=== PATIENT | female | born 1990 | race African-American/Black ===

== ENCOUNTER 2019-09-13 07:51 | Outpatient (CLI) | payer BC ==
--- NOTE | 2019-09-13 09:53 | ULT ---
PELVIC ULTRASOUND INCLUDING TRANSABDOMINAL AND TRANSVAGINAL AND VASCULAR DUPLEX WITH COLOR AND SPECTR AL DOPPLER IMAGING: HISTORY: Excessive bleeding, infrequent menses. FINDINGS: The uterus measures 8.3 x 3.4 x 4.3 cm. The endometrium is 1.0 cm in thickness. Right ovary 1.9 x 2.1 x 3.1 cm. Left ovary 1.9 x 2.6 x 2.8 cm. Somewhat empty bladder. On initial images, a bowel loop was somewhat indenting the bladder and on fo llowup imaging that was no longer the case. Vascular flow is documented to both ovaries. No evidence for ovarian torsion. IMPRESSION: Unremarkable pelvic ultrasound. POS: [facility]
== END 2019-09-13 07:52 | disposition home or self-care (01) ==
LOC: BICULT 07:51
PROVIDERS: ATTEND Family Medicine
DX: N92.1 Excessive and frequent menstruation with irregular cycle (principal); R10.84 Generalized abdominal pain
CPT/HCPCS: 76856

== ENCOUNTER 2021-04-30 08:40 | Outpatient (CLI) | payer BC | END 2021-04-30 08:41 | disposition home or self-care (01) | LOC: BICMAMMO 08:40 | PROVIDERS: ATTEND Family Medicine | DX: N64.59 Other signs and symptoms in breast (principal) | CPT/HCPCS: 77066; G0279 ==